=== PATIENT | female | born 1960 | race Caucasian/White ===

== ENCOUNTER → 2019-12-31 10:25 | Day surgery (SDC) | payer MEDICARE ==
[~2019-12-31 10:25] MED LIST: Acetaminophen TAB* 325 MG ONE; Acetaminophen TAB* 325 MG PO ONE; Buffered Lidocaine 1% SYRIN* 1 ML/SYRINGE INTRADERM ONE; Bupivacaine 0.25% SDV* 30 ML ONE; Dexamethasone IV* 4 MG/ML 1 ML (4 MG) IV SLOW PU ONE; Dexamethasone IV* 4 MG/ML 1 ML (4 MG) ONE; DiMENhydriNATE IV* 50 MG/ML VIAL IV PUSH PRN; Famotidine IV* 10 MG/ML 2 ML (20 mg) IV ONE; Famotidine IV* 10 MG/ML 2 ML (20 mg) ONE; HYDROcodone/ACETAMIN 5-325 MG* 1 TAB PO PRN; Ketorolac INJ* 30 MG/ML 1 ML VIAL ONE; Lactated Ringers 1000 ML Bag* 1,000 ML IV SCH; Lidocaine 2% PF * 5 ML VIAL ONE; Midazolam* 1 MG/ML 5 ML VIAL (5 MG) ONE; Morphine 4 MG/ML VIAL (1 ml) 4 MG/ML VIAL IV PRN; Naloxone* 0.4 MG/ML 1 ML VIAL IV PRN; Ondansetron INJ* 2 MG/ML VIAL ONE; Propofol* 10 MG/ML 20 ML BTL ONE; ceFAZolin 2 GM PREMIX in ORs 2 GM/50 ML BAG ONE; fentaNYL* 50 MCG/ML 2 ML VIAL (100 MCG VIAL) IV PRN; fentaNYL* 50 MCG/ML 2 ML VIAL (100 MCG VIAL) ONE; oxyCODONE/Acetamin 5/325 MG* TAB PO PRN
--- NOTE | 2019-12-31 13:54 | OP ---
Operative Report - Blank - Operative Report Date of Operation: 12/31/19 Note: PATIENT: Linn Paredes DATE OF : 1960 DATE OF SURGERY: 12/31/2019 SURGEON: Akbar Vitale MD CORPORATE RELATIONS DIRECTOR: VIDAL Mayberry, whos assistance was necessary for positioning, retraction, help with instrumentation, and closure. ANESTHESIOLOGIST: Dr. Ramos PREOPERATIVE DIAGNOSIS: Left knee medial meniscus tear POSTOPERATIVE DIAGNOSIS: Left knee medial meniscus tear OPERATION: Left knee arthroscopy with partial medial meniscectomy ANESTHESIA: General IMPLANTS: none TOURNIQUET TIME: Less than one hour, with a well-padded thigh tourniquet at 250 mmHg. SPECIMENS: None ESTIMATED BLOOD LOSS: minimal COMPLICATIONS: none STATUS: Stable from the operating room to the recovery room and then home. INDICATIONS FOR PROCEDURE: Linn has had persistent left knee pain. Both operative and non operative treatment alternatives were reviewed. Further, the nature and risks of surgery were reviewed in careful detail, in the office as well as the pre-operative holding area. Our discussions regarding the risks of surgery included, but were not limited to, infection, wound problems, nerve injury, neuroma, RSD, persistent symptoms, blood clot, failure of the surgery, need for further surgery, development of arthritis, and even the remote chance of catastrophic complication. DESCRIPTION OF PROCEDURE: The patient was seen in the preoperative holding unit and informed written consent was obtained. The appropriate extremity was marked. The patient was then brought to the operating room and carefully positioned on the operating room table. Anesthesia was induced. All bony prominences were padded with great care. A well-padded thigh tourniquet was placed. A chlorhexidine based pre- scrub was performed followed by a chloraprep prep and drape in standard sterile fashion. A surgical safety pause was then conducted in which we confirmed the appropriate patient, extremity, planned procedure, availability of equipment, indication and administration of prophylactic antibiotics, and DVT prophylaxis in the form of a compression boot on the non-surgical extremity. I began with an Esmarch exsanguination of the limb and inflated the tourniquet. I insufflated the joint by injecting sterile saline. I began by making a standard anterolateral knee arthroscopy portal. The arthroscope was inserted into the knee joint and a diagnostic arthroscopy was performed. Then under direct visualization an anteromedial arthroscopy portal was made. I introduced a probe into the joint. This was used to probe the posterior horn medial meniscus tear. A biter and oscillating shaver were used to debride the meniscal tear back to a stable rim. I then performed an extensive irrigation of the joint while running the shaver in each of the knee compartments to remove any loose debris. Once thoroughly irrigated and debrided , I suctioned the fluid out of the joint. The arthroscopy portals were then closed utilizing 3-0 nylon. A sterile dressing was then applied. The patient was then awakened from anesthesia and transferred to the recovery room in stable condition. There were no complications. All needle and sponge counts were correct at the end of the case. ATTESTATION: I attest I was present and scrubbed and performed the critical portions of the procedure myself. POSTOPERATIVE PLAN: The plan is for weight-bearing as tolerated with crutches. Follow-up will be in 2 weeks for likely suture removal.
[2019-12-31 15:10] VITALS: BP 142/79
== END | disposition home or self-care (01) ==
LOC: OR 10:25
PROVIDERS: ATTEND Orthopaedic Surgery
DX: S83.232A Complex tear of medial meniscus, current injury, left knee, initial encounter (principal); F17.210 Nicotine dependence, cigarettes, uncomplicated; I10 Essential (primary) hypertension; E78.00 Pure hypercholesterolemia, unspecified; F41.9 Anxiety disorder, unspecified; M25.512 Pain in left shoulder; M25.511 Pain in right shoulder; X58.XXXA Exposure to other specified factors, initial encounter; Y92.9 Unspecified place or not applicable; F11.90 Opioid use, unspecified, uncomplicated
CPT/HCPCS: A9270-GY; J0690; J1100; J1885; J2250; J2405; J2704; J3010; J3490